=== PATIENT | male | born 1965 | race American Indian/Alaskan Native ===

== ENCOUNTER 2020-12-13 10:42 | Outpatient (CLI) | payer BC ==
--- NOTE | 2020-12-13 11:20 | XRay Report ---
RIGHT KNEE 4 VIEWS INDICATION / CLINICAL INFORMATION: RIGHT KNEE PAIN.. COMPARISON: None available. FINDINGS: Moderate degenerative change in the patellofemoral joint. No other significant skeletal abnormality Signer Name: Rafael Chapman MD FACCody Signed: 12/13/2020 11:15 AM Workstation Name: [id number]
--- NOTE | 2020-12-13 12:35 | Magnetic Resonance Report ---
MR LE joint LT wo con INDICATION / CLINICAL INFORMATION: PAIN IN RIGHT KNEE. TECHNIQUE: Multiplanar, multisequence MR images were obtained. COMPARISON: None available. FINDINGS: No significant joint fluid is present. Moderate medial and patellofemoral degenerative changes seen w ith articular cartilage loss. There is a degenerative tear of the posterior horn of the medial menisc us. The lateral meniscus is normal. Cruciate ligaments, collateral ligaments and extensor mechanism a re intact. IMPRESSION: Moderate medial and patellofemoral degenerative change with a degenerative tear of the posterior horn of the medial meniscus Signer Name: Rafael PENA Signed: 12/13/2020 12:31 PM Workstation Name: [id number]
== END 2020-12-13 10:43 | disposition home or self-care (01) ==
LOC: MRI 10:42
DX: S83.242A Other tear of medial meniscus, current injury, left knee, initial encounter (principal); M17.12 Unilateral primary osteoarthritis, left knee; X58.XXXA Exposure to other specified factors, initial encounter; Y93.89 Activity, other specified; Y92.89 Other specified places as the place of occurrence of the external cause; Y99.8 Other external cause status
CPT/HCPCS: 73721